=== PATIENT | female | born 1985 | race Caucasian/White ===

== ENCOUNTER 2017-09-09 11:00 | Outpatient (CLI) | payer OTHER | END 2017-09-09 11:01 | disposition home or self-care (01) | LOC: SLR 11:00 | PROVIDERS: ATTEND Specialist | DX: G47.30 Sleep apnea, unspecified (principal); R40.0 Somnolence | CPT/HCPCS: 95810 ==

== ENCOUNTER 2018-02-24 07:08 | Inpatient (IN) | payer OTHER ==
[2018-03-01] MEDS ORDERED: APRESOLINE IV PRN (11:04)
[2018-03-01] MEDS ORDERED: DILAUDID IV PRN (11:04)
[2018-03-01] MEDS ORDERED: MORPHINE IV PRN (11:04)
[2018-03-01] MEDS ORDERED: ZOFRAN IV PRN (11:04)
[2018-03-01] MEDS ORDERED: REGLAN IV PRN (11:04)
[2018-03-02] MEDS ORDERED: TRANSDERM-SCOP TD SCH (07:00)
[2018-03-02] MEDS ORDERED: FLAGYL 500 MG/100 ML 500 MG/100 ML BAG IV NR (07:00)
[2018-03-02] MEDS ORDERED: ANCEF/STERILE WATER 2 GM/20 ML 2 GM/20 ML SYRINGE IV NR (07:00)
[2018-03-02] MEDS ORDERED: LOVENOX SUB-Q NR (07:00)
[2018-03-02] MEDS ORDERED: NACL BACTERIOSTATIC INFILTRATI ONE (11:14)
[2018-03-02] MEDS: LACTATED RINGERS 1,000 ML IV SCH (11:35)
[2018-03-02] MEDS ORDERED: DILAUDID IV PRN (12:15)
[2018-03-02] MEDS ORDERED: ZOFRAN IV PRN (12:15)
--- NOTE | 2018-03-02 12:15 | Anesthesia Consultation ---
Anesthesia Consult and Med Hx Date of service: 03/02/18 - Airway Anesthetic Teeth Evaluation: Good ROM Head & Neck: Adequate Mental/Hyoid Distance: Adequate Mallampati Class: Class III Intubation Access Assessment: Possibly Difficult - Pulmonary Exam CTA: Yes - Cardiac Exam Cardiac Exam: RRR - Pre-Operative Health Status ASA Pre-Surgery Classification: ASA3 Proposed Anesthetic Plan: General - Pulmonary Hx Sleep Apnea: Yes - Central Nervous System Hx Psychiatric Problems: No - Other Systems Hx Alcohol Use: No Hx Substance Use: No Hx Cancer: No Hx Obesity: Yes
--- NOTE | 2018-03-02 12:15 | Anesthesia Day of Surgery ---
Anesthesia Day of Surgery - Day of Surgery Patient Examined: Yes Patient H&P Reviewed: Yes Patient is NPO: Yes
[2018-03-02] MEDS ORDERED: PEPCID PO NR (13:00)
[2018-03-02] MEDS ORDERED: VERSED IV NR (13:00)
[2018-03-02] MEDS ORDERED: PEPCID IV NR (13:00)
[2018-03-02] MEDS ORDERED: XYLOCAINE 1% 20 mL INFILTRATI ONE ×2 (14:05)
[2018-03-02] MEDS ORDERED: MARCAINE 0.5% INFILTRATI ONE ×2 (14:05)
[2018-03-02] MEDS ORDERED: NACL 0.9% IR ONE ×4 (14:05)
--- NOTE | 2018-03-02 16:39 | Operative Report ---
Operative Report Operative Report: Operative Report DATE OF PROCEDURE: 03/02/18 PREOPERATIVE DIAGNOSES: Morbid obesity POSTOPERATIVE DIAGNOSES: 1. Morbid obesity, hiatal hernia SURGEON: Dr. Bustamante [employer] CONSULTANT: Dr.Speights Hutchison DO PROCEDURE: 1. Intraoperative EGD 2.laparoscopic sleeve gastrectomy 3. laparoscopic hiatal hernia repair ANESTHESIA: General. ESTIMATED BLOOD LOSS: <5 mL. COMPLICATIONS: None. SPECIMEN: Partial gastrectomy. FINDINGS: 1. hiatal hernia 2. Otherwise, normal esophagus, stomach and first portion of duodenum INDICATION FOR PROCEDURE: Patient is 32 year-old F with a long history of morbid obesity. The patient has tried multiple efforts at weight loss without half-way success. Pt is here today for sleeve gastrectomy and pre operative EGD. PROCEDURE IN DETAIL: After consent was reviewed, patient was taken back to the operating room, where patient was placed supine on the bed with both arms out. The patient's legs were doubly strapped to the bed. Patient had a foot board in place. Patient had a body warmer placed by anesthesia. Patient was then prepped and draped in normal sterile surgical fashion. After a time-out was called, an intraoperative EGD was performed. I then passed the endoscope into her oropharynx, into her esophagus, visualized the entire esophagus, which was all within normal limits. I then visualized the stomach and the first portion of the duodenum and there were no abnormalities I could clearly visualize. I then retroflexed the scope in the stomach and visualized the hiatus and I could see a small hiatal hernia. I then desufflated the stomach and removed the endoscope. Next, a stab incision in the left upper quadrant and placed a Veress needle through this incision and insufflated the abdomen to 18 mmHg pressure. Once the abdomen was adequately insuflated an incision was made in the umbilicus. I then inserted a 5mm trocar via optiview technique with a 5-0 scope. There was no injury on entry of the abdomen. The veress needle was removed. The umbilical incision was widened, the 5mm port was removed and a 15mm port was placed. I then placed two 5-mm ports in the right upper quadrant, one along the anterior axillary line and 1 subxiphoid below the costovertebral angle. I then placed left upper quadrant port along the anterior axillary line in a similar fashion x2. Prior to each port placement local anesthesia was used. I then placed the liver retractor through the subxiphoid port and placed the patient in full reverse Trendelenburg. The right and left crura were skeletonized accentuating a small hiatal hernia. An anterior cruraplasty was perfromed with a figure-of-8 stitch using Endostitch with 0 ethibond suture to reapproximate the crura. I then identified the pylorus and then counted off 6cm from the pylorus. I then used a LigaSure cutting device to enter into the lesser sac. At that point and then I took down the short gastrics all the way up to the left romi. Then I had anesthesia pass down a 40 Indonesian bougie along the lesser curvature of the stomach. I made sure everything else was out of the abdomen except the bougie. I then created my gastric sleeve using a 60-mm laparoscopic stapler. . The sleeve looked good without any twisting or torsion. I then had anesthesia to remove the bougie. Hemostasis was obtained along the staple line. I then used Tiseel along the entirety of the staple line and some on the liver. I then removed liver grasper and took it off the field. I then removed the stomach through the 15-mm umbilcal port. I then closed that fascia with a #1 PDS in a [id number] fashion using a Richardson-Angelica. I then desufflated the abdomen and then removed all port sites. I then closed the incisions with 4-0 Monocryl in subcuticular fashion. I then dressed the wounds with steristrips, gauze and tegaderms. Patient tolerated the procedure well and was transferred to recovery room in good and stable condition
--- NOTE | 2018-03-02 17:12 | Post Anesthesia Evaluation ---
- Post Anesthesia Evaluation Patient Participated: Yes Airway Patent: Yes Stable Respiratory Function: Yes Nausea/Vomiting: No Temp > 96.8F: Yes Pain Manageable: Yes Adequeate Hydration: Yes Anesthesia Complications: No
[2018-03-02] MEDS: NORCO PO PRN (17:20)
[2018-03-02] MEDS: MYLICON PO PRN (17:34)
[2018-03-03] MEDS: LACTATED RINGERS 1,000 ML IV SCH (03:26)
[2018-03-03] MEDS: NORCO PO PRN (09:44)
[2018-03-03] MEDS: MYLICON PO PRN (09:44)
[2018-03-03 11:34] LABS: Basophils % (Auto) 0.1 % (0.0-1.8); Hematocrit 33.8 % (30.3-42.9); Hemoglobin 11.3 gm/dl (10.1-14.3); Lymphocytes # (Auto) 1.2 K/mm3 (1.2-5.4); Lymphocytes % (Auto) 11.2 % (13.4-35.0); Mean Corpuscular HGB Conc 34 % (30-34); Mean Corpuscular Hemoglobin 26 pg (28-32); Mean Corpuscular Volume 79 fl (79-97); Monocytes # (Auto) 0.5 K/mm3 (0.0-0.8); Monocytes % (Auto) 4.4 % (0.0-7.3); Platelet Count 303 K/mm3 (140-440); Red Cell Distribution Width 15.8 % (13.2-15.2)
[2018-03-03 11:52] LABS: BUN/Creatinine Ratio 13; Blood Urea Nitrogen 8 mg/dL (7-17); Calcium 8.5 mg/dL (8.4-10.2); Hemolysis Index 32
[2018-03-03] MEDS ORDERED: LOVENOX SUB-Q SCH (14:00)
[2018-03-03 16:21] VITALS: BP 130/76
--- NOTE | 2018-03-03 17:08 | Discharge Summary ---
Providers - Providers Date of Admission: 03/02/18 09:10 Attending physician: YEVGENIY MARSH Primary care physician: SAMUEL OCHOA MD Hospitalization Condition: Good Procedures: laparoscopic gastric sleeve, hiatal hernia repair, EGD Hospital course: 32 y.o. y.o. F admitted for laparoscopic gastric sleeve, hiatal hernia repair, EGD. She tolerated the procedure well. POD 1 she was able to tolerate liquids and ambulate. Her pain was well controlled. Disposition: DC- TO HOME OR SELFCARE Core Measure Documentation - Palliative Care Palliative Care/ Comfort Measures: Not Applicable - Core Measures Any of the following diagnoses?: none Exam - Constitutional Vitals: Temp Pulse Resp BP Pulse Ox 99 F 88 18 130/76 96 03/03/18 16:00 03/03/18 16:00 03/03/18 16:00 03/03/18 16:00 03/03/18 16:00 General appearance: Present: no acute distress - Respiratory Respiratory effort: normal - Cardiovascular Rhythm: regular - Extremities Extremities: no ischemia, pulses intact - Abdominal General gastrointestinal: Present: other (soft, obese, tender at incision sites. incision sites cdi. no rebound no guarding ) - Integumentary Integumentary: Present: clear, warm, dry - Musculoskeletal Musculoskeletal: strength equal bilaterally - Psychiatric Psychiatric: appropriate mood/affect, intact judgment & insight Plan Activity: other (no lifting >15lbs for 6 weeks . ) Diet: other (sugar free clear liquids ) Wound: keep clean and dry Additional Instructions: goal fluid intake is 64 oz. Goal protein intake in 60g. Follow up with: PRIMARY CAREMD [Primary Care Provider] - 7 Days
== END 2018-03-03 17:25 | disposition home or self-care (01) | DRG 621 ==
LOC: 3A 03-02 09:10 → 3B-SURG 03-02 17:08
PROVIDERS: ADMIT Specialist; ATTEND Specialist
PROC: 0DB64Z3 Excision of Stomach, Percutaneous Endoscopic Approach, Vertical (ICD-10-PCS; principal; 2018-03-02)
PROC: 0BQT4ZZ Repair Diaphragm, Percutaneous Endoscopic Approach (ICD-10-PCS; 2018-03-02)
PROC: 0DJ08ZZ Inspection of Upper Intestinal Tract, Via Natural or Artificial Opening Endoscopic (ICD-10-PCS; 2018-03-02)
DX: E66.01 Morbid (severe) obesity due to excess calories (principal); K44.9 Diaphragmatic hernia without obstruction or gangrene; Z68.37 Body mass index [BMI] 37.0-37.9, adult; Z71.3 Dietary counseling and surveillance; K30 Functional dyspepsia; Z83.3 Family history of diabetes mellitus; Z82.49 Family history of ischemic heart disease and other diseases of the circulatory system; G47.30 Sleep apnea, unspecified
CPT/HCPCS: 36415; 80048; 81025; 85025; 88307; A4217; C9250; J0690; J1170; J1650; J2250; J2270; J2405; J2765; J7120